=== PATIENT | male | born 1955 | race African-American/Black ===

== ENCOUNTER 2018-03-15 06:10 | Emergency (ER) | payer MEDICARE, MEDICAID ==
[~2018-03-15] VITALS: Ht 170.2 cm; Wt 100.0 kg
[2018-03-15] MEDS ORDERED: DEXAMETHASONE 10 MG/ML VIAL IM ONE (07:15)
[2018-03-15] MEDS ORDERED: DIPHENHYDRAMINE 50MG/ML VIAL IM ONE (07:15)
[2018-03-15 07:37] VITALS: BP 180/87
== END 2018-03-15 07:43 | disposition home or self-care (01) ==
LOC: ER 06:10
DX: L30.9 Dermatitis, unspecified (principal); L29.9 Pruritus, unspecified; J45.909 Unspecified asthma, uncomplicated; F17.210 Nicotine dependence, cigarettes, uncomplicated; Z98.890 Other specified postprocedural states; Z87.828 Personal history of other (healed) physical injury and trauma
CPT/HCPCS: 96372; 99283; J1100; J1200

== ENCOUNTER 2018-04-15 14:20 | Emergency (ER) | payer MEDICARE, MEDICAID ==
[~2018-04-15] VITALS: Ht 170.2 cm; Wt 100.0 kg
[2018-04-15 16:41] VITALS: BP 122/78
[2018-04-15] MEDS ORDERED: DEXAMETHASONE 10 MG/ML VIAL IM ONE (17:00)
== END 2018-04-15 17:17 | disposition home or self-care (01) ==
LOC: ER 14:20
DX: L29.9 Pruritus, unspecified (principal); L30.9 Dermatitis, unspecified; I10 Essential (primary) hypertension; F10.229 Alcohol dependence with intoxication, unspecified; J45.909 Unspecified asthma, uncomplicated; Y90.9 Presence of alcohol in blood, level not specified; Z98.890 Other specified postprocedural states; Z87.828 Personal history of other (healed) physical injury and trauma
CPT/HCPCS: 96372; 99283; J1100

== ENCOUNTER 2018-04-22 11:07 | Emergency (ER) | payer MEDICARE, MEDICAID ==
[~2018-04-22] VITALS: Ht 177.8 cm; Wt 100.0 kg
[2018-04-22] MEDS ORDERED: DEXAMETHASONE 10 MG/ML VIAL IM ONE (12:15)
[2018-04-22] MEDS ORDERED: DIPHENHYDRAMINE 50MG/ML VIAL IM ONE (12:15)
[2018-04-22 12:40] VITALS: BP 159/98
== END 2018-04-22 14:42 | disposition home or self-care (01) ==
LOC: ER 13:52
DX: L30.9 Dermatitis, unspecified (principal); J45.909 Unspecified asthma, uncomplicated; Z98.890 Other specified postprocedural states; Z87.828 Personal history of other (healed) physical injury and trauma
CPT/HCPCS: 96372; 99283; J1100; J1200

== ENCOUNTER 2018-05-24 05:57 | Emergency (ER) | payer MEDICARE, MEDICAID ==
[~2018-05-24] VITALS: Ht 177.8 cm; Wt 82.0 kg
[2018-05-24] MEDS ORDERED: DIPHENHYDRAMINE 50MG/ML VIAL IV ONE (07:00)
[2018-05-24] MEDS ORDERED: PREDNISONE 20MG TABLET PO ONE (10:00)
[2018-05-24 17:00] VITALS: BP 151/87
== END 2018-05-24 17:30 | disposition home or self-care (01) ==
LOC: ER 05:57
DX: L30.9 Dermatitis, unspecified (principal); J45.909 Unspecified asthma, uncomplicated; F17.210 Nicotine dependence, cigarettes, uncomplicated; Z98.890 Other specified postprocedural states
CPT/HCPCS: 96374; 99283; J1200; J7512

== ENCOUNTER 2018-06-11 13:50 | Emergency (ER) | payer MEDICARE, MEDICAID ==
[~2018-06-11] VITALS: Ht 177.8 cm; Wt 100.0 kg
[2018-06-11] MEDS ORDERED: DEXAMETHASONE 10 MG/ML VIAL IM ONE (17:30)
[2018-06-11 18:00] VITALS: BP 147/85
== END 2018-06-11 18:01 | disposition home or self-care (01) ==
LOC: ER 14:13
DX: L20.9 Atopic dermatitis, unspecified (principal); J45.909 Unspecified asthma, uncomplicated
CPT/HCPCS: 96372; 99283; J1100

== ENCOUNTER 2018-07-25 08:16 | Emergency (ER) | payer MEDICARE, MEDICAID ==
[~2018-07-25] VITALS: Ht 177.8 cm; Wt 100.0 kg
[2018-07-25] MEDS ORDERED: DIPHENHYDRAMINE 25MG CAPSULE PO ONE (09:30)
[2018-07-25] MEDS ORDERED: FAMOTIDINE 20MG TABLET PO ONE (09:30)
[2018-07-25] MEDS ORDERED: DEXAMETHASONE 10 MG/ML VIAL IM ONE (09:30)
[2018-07-25 10:45] VITALS: BP 118/72
== END 2018-07-25 10:47 | disposition home or self-care (01) ==
LOC: ER 08:16
DX: L30.9 Dermatitis, unspecified (principal); L29.8 Other pruritus; J45.909 Unspecified asthma, uncomplicated
CPT/HCPCS: 96372; 99283; J1100; Q0163

== ENCOUNTER 2019-08-14 11:32 | Emergency (ER) | payer MEDICARE, MEDICAID ==
[~2019-08-14] VITALS: Ht 177.8 cm; Wt 99.7 kg
[2019-08-14] MEDS ORDERED: PREDNISONE 20MG TABLET PO STA (12:21)
[2019-08-14] MEDS ORDERED: IPRATROPIUM BROMIDE (0.02%) 0.5MG/2.5ML NEB HHN STA (12:21)
[2019-08-14] MEDS ORDERED: ALBUTEROL (0.083%) 2.5MG/3ML NEB HHN STA (12:21)
[2019-08-14] MEDS ORDERED: DIPHENHYDRAMINE 50MG CAPSULE PO ONE (12:30)
[2019-08-14 14:22] VITALS: BP 145/77
== END 2019-08-14 14:22 | disposition home or self-care (01) ==
LOC: ER 11:48
DX: J45.901 Unspecified asthma with (acute) exacerbation (principal); L30.9 Dermatitis, unspecified
CPT/HCPCS: 94640; 99283; J7512; Q0163